=== PATIENT | female | born 1985 | race Caucasian/White ===

== ENCOUNTER 2019-11-19 09:30 | Emergency (ER) | payer MEDICAID ==
[~2019-11-19] VITALS: Ht 170.2 cm; Wt 61.2 kg
[2019-11-19 09:40] VITALS: BP 110/69
--- NOTE | 2019-11-19 09:45 | NUR ---
ED Nurse Note: Patient ambulated into the ER with a complaint of neck pain since last night. Patient states she took celebrex this morning and states it didnt help. Patient is aaox4, on room air, with stable vital signs.
--- NOTE | 2019-11-19 09:48 | NUR ---
ED Nurse Note: ERMD is at bedside.
[2019-11-19] MEDS ORDERED: LIDODERM700 M1 TOPIC (09:55)
--- NOTE | 2019-11-19 09:55 | Emergency Room Report ---
History of Present Illness General Chief Complaint: Neck Pain Source: Patient Present Illness HPI 34-year-old female with no past medical history presents to emergency room with neck pain on left side. Patient reports symptoms started last night. She denies any injuries. She reports she may have slept on it or there was some tightness. She has had similar symptoms in the past but this is the most severe. She denies any numbness or tingling in the distal upper extremity. She tried topical lidocaine cane treatment with minimal improvement. She also took Celecoxib at 3 AM with no improvement. She denies any headache, nausea, vomiting, IV drug abuse, lower extremity weakness, distal back pain or change/ incontinence in bowel or urinary habits. Allergies: Coded Allergies: SULFUR (Verified Allergy, Unknown, 11/19/19) Patient History Last Menstrual Period: 2 weeks ago Nursing Documentation-[facility] Past Medical History: No Stated History Review of Systems Constitutional: Denies: chills, fever Respiratory: Denies: cough, shortness of breath Cardiovascular: Denies: chest pain, palpitations Gastrointestinal: Denies: diarrhea, vomiting Genitourinary: Denies: hematuria, pain Musculoskeletal: Reports: other - Neck pain; Denies: joint swelling Skin: Denies: rash, lesions Neurological: Denies: headache, dizziness Physical Exam Vital Signs Date Time Temp Pulse Resp B/P (MAP) Pulse Ox O2 Delivery O2 Flow Rate FiO2 11/19/19 09:32 98.1 86 16 110/69 (83) 97 Room Air Sp02 EP Interpretation: reviewed General Appearance: well appearing, no apparent distress, non-toxic Head: normocephalic, atraumatic Eyes: bilateral eye normal inspection ENT: hearing grossly normal, EOM grossly intact, moist mucus membranes Neck: normal inspection, supple, supple/symm/no masses, tender lateral - Left paraspinals extending to trapezius, other - Range of motion limited due to pain on left side, no midline tenderness Respiratory: lungs clear, normal breath sounds, no respiratory distress, speaking full sentences Cardiovascular #1: regular rate, rhythm, normal capillary refill Cardiovascular #2: 2+ radial (R), 2+ radial (L) Gastrointestinal: soft, non-distended Rectal: deferred Musculoskeletal: normal inspection, back normal, moves extm spontaneously, no lower extremity edema, other - Full range of motion of bilateral upper extremities, 5 out of 5 strength, no decrease in sensation Neurologic: alert, motor strength/tone normal, grossly normal Psychiatric: mood/affect normal Skin: warm/dry, normal turgor Medical Decision Making Diagnostic Impression: Primary Impression: Neck pain Additional Impression: Neck muscle spasm ER Course 34-year-old female presenting with neck pain and spasms status post sleeping. Took topical pain medication and anti-inflammatory with no improvement. Can palpate muscle spasm on exam and tenderness to lateral paraspinals and trapezius. Will recommend muscle relaxant and anti-inflammatories. Patient advised to follow-up with primary care doctor in 2 to 3 days for reevaluation. Last Vital Signs Date Time Temp Pulse Resp B/P (MAP) Pulse Ox O2 Delivery O2 Flow Rate FiO2 11/19/19 09:40 98.1 75 16 110/69 97 Room Air Disposition: HOME, SELF-CARE Condition: Stable Scripts Lidocaine Patch* (Lidoderm Patch*) 1 Each Adh..patch 1 PATCH TOPIC DAILY, #7 PATCH 0 Refills Patch(es) may remain in place for up to 12 hours in any 24-hour period. Prov: Jc Linares M.D. 11/19/19 Referrals: [facility] Jc Linares M.D. Nov 19, 2019 09:55
[2019-11-19 10:00] VITALS: BP 110/69
--- NOTE | 2019-11-19 10:00 | NUR ---
ER DISCHARGE NOTE: Patient is cleared to be discharged per ERMEduardo Linares, pt is aox4, on room air, with stable vital signs. pt was given dc and prescription instructions, pt was able to verbalize understanding, pt id band removed without complications. pt is able to ambulate with steady gait. pt took all belongings.
== END 2019-11-19 10:09 | disposition home or self-care (01) ==
LOC: EMR 10:04
DX: M54.2 Cervicalgia (principal); M62.838 Other muscle spasm
CPT/HCPCS: 99282